=== PATIENT | male | born 1965 | race Caucasian/White ===

== ENCOUNTER 2019-08-05 07:14 | Day surgery (SDC) | payer OTHER ==
[2019-08-05] MEDS ORDERED: Acetaminophen 500 MG Tab PO ONE (07:15)
[2019-08-05] MEDS ORDERED: ceFAZolin 2 GM in Premix Bag 1 BAG IV ONE (07:45)
[2019-08-05] MEDS ORDERED: Dextrose 5%-Lactated Ringers 1,000 ML IV SCH (07:45)
[2019-08-05] MEDS ORDERED: Propofol 200 MG/20 ML SDV ONE ×3 (08:04→09:29)
[2019-08-05] MEDS ORDERED: Midazolam 1 MG/ML 2 ML SDV ONE (08:04)
[2019-08-05] MEDS ORDERED: fentaNYL 100 MCG/2 ML SDV ONE (08:04)
[2019-08-05] MEDS ORDERED: Lidocaine 1% with EPINEPHrine 1:100,000 50 ML MDV ONE (08:18)
[2019-08-05] MEDS ORDERED: Bupivacaine 0.5% 50 ML MDV ONE (08:18)
[2019-08-05] MEDS ORDERED: Ketorolac 60 MG/2 ML SDV ONE (09:23)
[2019-08-05] MEDS ORDERED: oxyCODONE 5 MG Tab PO PRN (11:03)
[2019-08-05 12:06] VITALS: BP 121/59; PULSE 59
--- NOTE | 2019-08-15 11:25 | OR ---
DATE OF PROCEDURE: 08/05/2019 SURGEON: Juve Limon MD PREOPERATIVE DIAGNOSIS: Left inguinal hernia. POSTOPERATIVE DIAGNOSES: 1. Left inguinal hernia. 2. Left ilioinguinal nerve at risk for scar entrapment. OPERATIVE PROCEDURES: Left inguinal exploration with: 1. Left inguinal hernia repair with mesh (25964). 2. Excision of portion of left ilioinguinal nerve (88766). ANESTHESIA: Local plus IV sedation. ENVIRONMENTAL SAFETY SPECIALIST: Kasey Barrios PA-C INDICATIONS FOR PROCEDURE: This is a 54-year-old male, referred from the [place] system with an increasingly symptomatic left inguinal hernia. Plan is to proceed with repair with a mesh plug technique. Potential risks of the procedure including bleeding, infection, injury to underlying viscera, problems with mesh becoming infected or the hernia recurring, chronic pain following the hernia were all reviewed, and we will often divide one or two of the nerves in the area, leaving an area of anesthesia in the skin around the incision, was gone over, so as to minimize problems with postoperative pain. This was all reviewed with the patient and he wishes to proceed. DETAILS OF PROCEDURE: The patient was taken to the operating room, placed in a supine position. IV sedation was administered, after which the abdomen and groin areas were prepped and draped. Left inguinal area was then anesthetized with 1% lidocaine mixed with Marcaine, and a left inguinal incision made and carried down through the skin and subcutaneous tissue through the external oblique aponeurosis. Subaponeurotic flaps were then raised superiorly and inferiorly, and the cord structures were mobilized upward. The patient was noted to have a large direct hernia. No incarcerated components were noted. He did not have an indirect component, i.e., there is no hernia running around the cord structures. The ilioinguinal nerve was directly across the plane where the flat portion of the mesh plug system would be subsequently placed, so a portion of this was excised and taken out through the lateral aspect of the incision. The transversalis fascia over the direct hernia was then incised and dissection then continued downward, exposing Harrison ligament and then the underside of the conjoint tendon. An extra large mesh plug was then placed into the defect and initially tacked with titanium tacking screws to the Harrison's ligament and then to the underside of the conjoint tendon with horizontal mattress sutures of 2-0 Vicryl stitch. The flat portion of the mesh plug system was then placed across the floor and tied to the pubic tubercle and sutured lateral to the cord structures with a 3-0 Vicryl stitch. The latter stitch was also used to reapproximate the external oblique aponeurosis and Corey's fascia and the skin was closed with 4-0 Vicryl subcuticular stitch. Dressing was applied. The patient was taken to the recovery room in satisfactory condition. There were no evident complications. Physician bookkeeper assistant, Kasey Barrios, played an essential role in assisting in this case, helping to position the patient, retract structures as needed, as well as suturing and cutting sutures when indicated. Her presence improved patient safety and decreased the operative time. Juve Limon MD /[id number]
== END 2019-08-05 12:24 | disposition home or self-care (01) ==
LOC: JP.SDS 07:14
PROVIDERS: ATTEND Surgery
DX: K40.90 Unilateral inguinal hernia, without obstruction or gangrene, not specified as recurrent (principal); G57.82 Other specified mononeuropathies of left lower limb
CPT/HCPCS: 49505; 64784; 88302; A9270; C1713; C1781; J0690; J1885; J2250; J2704; J3010; J3490; J7121